=== PATIENT | female | born 1985 | race Two or more races ===

== ENCOUNTER 2017-08-14 15:23 | Emergency (ER) | payer MEDICAID ==
[~2017-08-14] VITALS: Ht 162.6 cm; Wt 99.8 kg
[2017-08-14 15:34] VITALS: BP 149/98
== END 2017-08-14 18:46 | disposition home or self-care (01) ==
LOC: ER 15:47
DX: S00.03XA Contusion of scalp, initial encounter (principal); D33.2 Benign neoplasm of brain, unspecified; W22.8XXA Striking against or struck by other objects, initial encounter; Y93.89 Activity, other specified; Y92.89 Other specified places as the place of occurrence of the external cause; Y99.8 Other external cause status
CPT/HCPCS: 70450

== ENCOUNTER 2019-10-27 19:20 | Emergency (ER) | payer MEDICAID ==
[~2019-10-27] VITALS: Ht 160 cm; Wt 95.3 kg
[2019-10-27 19:40] VITALS: BP 137/84
[2019-10-27 20:00] LABS: Basophils # (auto) 0.1 uL; Basophils % (auto) 1.1 % (0.0-2.0); Eosinophils # (auto) 0.1 uL; Hematocrit 38.5 % (36.0-46.0); Hemoglobin 13.2 g/dL (12.2-16.2); Lymphocytes # (auto) 3.1 uL; Lymphocytes % (auto) 25.5 % (10.0-50.0); Mean Corpuscular Hemoglobin 30.1 pg (28.0-32.0); Mean Corpuscular Hgb Conc. 34.2 g/dL (32.0-36.0); Monocytes # (auto) 0.8 uL; Monocytes % (auto) 6.5 % (0.0-12.0); Neutrophils % (auto) 65.9 % (37.0-80.0); Nucleated Red Blood Cells % 0.1 %; Platelet Count (auto) 146 10^3/uL (140-450); Red Blood Cells 4.37 10^6/uL (4.0-5.20); Red Cell Distribution Width 12.8 % (11.8-14.3); White Blood Cell 12.1 10^3/uL (4.4-10.8)
[2019-10-27 20:22] LABS: Chloride 109 mmol/L (98-107); Potassium 3.6 mmol/L (3.5-5.1); Sodium 139 mmol/L (136-145)
[2019-10-27 20:31] LABS: Alanine Aminotransferase 38 U/L (13-56); Albumin 3.6 g/dL (3.4-5.0); Alkaline Phosphatase 74 U/L (45-117); Anion Gap 6 (5-15); Aspartate Aminotransferase 21 U/L (15-37); BUN/Creatinine Ratio 15.9; Bilirubin, Total 0.4 mg/dL (0.2-1.0); Blood Urea Nitrogen 11 mg/dL (7-18); Calcium 8.2 mg/dL (8.5-10.1); Carbon Dioxide 24 mmol/L (21-32); GFR African American 125 mL/min; GFR Non-African American 104 mL/min; Glucose 180 mg/dL (74-106); Magnesium 2.2 mg/dL (1.6-2.6)
== END 2019-10-28 04:28 | disposition left against medical advice (07) ==
LOC: ER 19:23
DX: R07.89 Other chest pain (principal); Z53.21 Procedure and treatment not carried out due to patient leaving prior to being seen by health care provider
CPT/HCPCS: 36415; 71045; 80053; 83735; 83880; 84484; 85025; 93005

== ENCOUNTER 2022-03-25 00:03 | Emergency (ER) | payer MEDICAID ==
[~2022-03-25] VITALS: Ht 162.6 cm; Wt 100.7 kg
[2022-03-25 00:55] VITALS: BP 172/109
[2022-03-25] MEDS ORDERED: KETOROLAC TROMETH 60MG/2ML VIAL IM ONE (01:15)
[2022-03-25] MEDS ORDERED: AMOX-277 PO (01:16)
[2022-03-25] MEDS ORDERED: IBUP800T26 PO (01:16)
== END 2022-03-25 01:41 | disposition home or self-care (01) ==
LOC: ER 00:03
DX: K04.7 Periapical abscess without sinus (principal)
CPT/HCPCS: 96372; 99283; J1885